=== PATIENT | male | born 1955 | race Caucasian/White ===

== ENCOUNTER → 2021-05-04 17:20 | Outpatient (CLI) | payer MEDICARE, SELFPAY ==
--- NOTE | ~2021-05-04 | XR_ITS ---
XR chest 2V DATE: 05/04/2021 17:40 INDICATION: Cough TECHNIQUE: PA and lateral views COMPARISON: 01/05/2014 CT pulmonary scan FINDINGS: Mild patchy infiltrate is suggested in the left upper, mid and lower lung zones. The right lung appears clear of infiltrate or consolidation. No pleural effusion or pulmonary vascular congestion or pneumothorax. Normal heart size. Aortic arch calcification. No hilar or mediastinal enlargement. Diffuse idiopathic skeletal hyperostosis of the thoracic spine. IMPRESSION: Scattered mild patchy infiltrates of the left lung Reviewed, dictated and finalized at location A. [employer]
== END ==
PROVIDERS: PCP Emergency Medicine; Visit Provider Emergency Medicine
DX: R68.89 Other general symptoms and signs (principal); R91.8 Other nonspecific abnormal finding of lung field
CPT/HCPCS: 71046